=== PATIENT | female | born 1990 | race Caucasian/White ===

== ENCOUNTER 2018-02-22 09:59 | Emergency (ER) | payer OTHER, SELFPAY ==
--- NOTE | 2018-02-22 11:11 | RAD ---
LEFT FOOT 3 VIEWS: Date: 02/22/18 HISTORY: Foot pain. COMPARISON: None. FINDINGS: No acute fracture or malalignment. Lisfranc interval is normal. There is an os intermetatarseum betwe en the first and second metatarsal bases. There is a bipartite hallux sesamoid versus old fracture. IMPRESSION: No acute abnormality. POS: [facility]
== END 2018-02-22 11:40 | disposition home or self-care (01) ==
LOC: ERS 09:59
DX: M67.472 Ganglion, left ankle and foot (principal); F32.9 Major depressive disorder, single episode, unspecified

== ENCOUNTER 2019-10-01 09:41 | Inpatient (IN) | payer OTHER ==
[2019-10-01] MEDS ORDERED: Bicitra 30 ML UDCUP PO SCH (10:19)
[2019-10-01] MEDS ORDERED: hydrALAZINE 20 MG/ML VIAL SLOW IVP PRN ×2 (10:19→16:57)
[2019-10-01] MEDS ORDERED: Lactated Ringer's 1,000 ML IV SCH (10:19)
[2019-10-01] MEDS ORDERED: Promethazine HCl 25 MG/ML VIAL IM PRN ×5 (10:19→16:59)
[2019-10-01] MEDS ORDERED: Ondansetron PF 4 MG/2 ML Vial IVP PRN ×3 (10:19→16:57)
[2019-10-01 10:33] VITALS: BMI 45.7
[2019-10-01 11:39] LABS: Hemoglobin 11.2 g/dL (12.0-16.0); Mean Corpuscular HGB CONC 33.1 g/dL (32.0-36.0); Mean Corpuscular Volume 84.6 fL (78.0-98.0); Mean Platelet Volume 8.2 fL (7.4-10.4); Platelet Count 193 thou/uL (130-400); RBC Distribution Width 13.7 % (11.5-14.5); White Blood Cell (WBC) Count 6.8 thou/uL (4.8-10.8)
[2019-10-01] MEDS ORDERED: CEFAZOLIN 3 GM in Sodium Chloride 0.9% 100 ML IVPB SCH (11:45)
[2019-10-01] MEDS ORDERED: MORPHINE 5 MG/10 ML PF VIAL ONE (12:07)
[2019-10-01] MEDS ORDERED: Oxytocin 10 UNITS/ML VIAL ONE ×2 (12:08→13:26)
[2019-10-01] MEDS ORDERED: Ondansetron PF 4 MG/2 ML Vial ONE (12:08)
[2019-10-01] MEDS ORDERED: ePHEDrine/0.9% NaCl/PF SYRINGE 50 mg/10 ml ONE (12:08)
[2019-10-01 12:24] LABS: HBSAg Index 0.21 S/CO (0-0.99); Hep B Surf Ag Non-Reactive S/CO (NonReactive); Syphilis Antibody Nonreactive (Nonreactive); Syphilis Antibody Index 0.07 S/CO (<1.00 Non-Reactive)
--- NOTE | 2019-10-01 14:11 | PDOC.OPDEL ---
OB Operative/Delivery Note Delivery Dr/Surgeon: Dion Assist: José Miguel Pre-Delivery Diagnosis: scheduled section Procedure/Post Delivery Dx: repeat low transverse CS Anesthesia: spinal - Additional Findings/Plan Compilations/Other Findings: [facility] Name: [address] : 05/24/1984, Age: 35, Sex: LISBETH Dawn [id number] Unit #: [id number], Status: DIS IN [phone] Location: [address] [place] [address] Dictated by: Charlotte Valdez MD *r Admission Date: 09/25/19 Report #: [id number] Discharge Date: 09/27/19 CC: ~ OPERATIVE NOTE DATE OF PROCEDURE: 10/01/2019 ATTENDING SURGEON: Dr. Parrish Ashley MD RESIDENT SURGEONS: Charlotte Valdez, PGY-2, PROCEDURES PERFORMED: 1. Repeat low-transverse section x3 PREOPERATIVE DIAGNOSES: 1. Term intrauterine at 39 weeks with hx of rLTCS x2 POSTOPERATIVE DIAGNOSES: 1. Term intrauterine at 39 weeks s/p rLTCS x3 ANESTHESIA: Spinal. INDICATIONS: The patient is a 29-year-old, G7, P3P2 at 39.2 weeks presented for scheduled repeat . PROCEDURE IN DETAIL: After risks, benefits, and alternatives were explained to the patient, she gave informed consent. Preoperative antibiotics included cefazolin 3 g IV. The patient was taken to the operating room, and spinal anesthesia was initiated. She was placed in the supine position with a leftward tilt and prepped and draped in the usual sterile fashion. A Pfannenstiel incision was made with a scalpel and carried down to the level of fascia, which was sharply nicked. The fascial cut was extended bilaterally with Wayne scissors. The inferior and superior edges of the cut fascial edges were elevated with Helen clamps, and the underlying rectus muscles were sharply and bluntly dissected free. The recti were divided sharply. Multiple adhesions between the anterior uterus and the abdominal wall were carefully taken down with Metzenbaum scissors and the bovie; The rectus muscles were then incised transversely 2cm bilaterally to create more room;A low transverse score was made with a scalpel, and the uterus was entered in the midline with the scalpel. Clear fluid was seen. Hysterotomy was extended manually. The was noted to be vertex and easily delivered by fundal pressure. Mouth and nares were bulb suctioned. Delayed cord clamp and then cut. Grossly normal male infant handed to the nursing team. Cord blood was obtained. The placenta was manually extracted, found to be intact with 3-vessel cord and discarded. Uterus was externalized, and the endometrium was curetted with a dry lap. Bladder blade was replaced, and the uterus was closed with a running locking suture followed by a running horizontal mattress imbricating layer also with 1 Monocryl.. Hemostasis was observed; Abdomen was copiously irrigated and cleared of blood and clots. Seprafilm was applied. Uterus was internalized, and the hysterotomy was again noted to be hemostatic. Arrista was applied along the peritoneal and divided adhesion edges for multiple tiny oozing sites, with hemostasis seen. The rectus muscles were repaired with 0 vicryl. The fascia was closed with a running nonlocking 0 PDS suture. The subcutaneous tissue was irrigated, and a 3-0 Vicryl was used to close the subtaneous layer. Stapled closed. All counts were correct. The patient tolerated the procedure well, was taken to the recovery room in a stable position. QBL: Pending COMPLICATIONS: None. FINDINGS: Grossly normal male with Apgars of 8 and 9 Grossly normal placenta, 3-vessel cord discarded. DRAINS: Teran to gravity, drained clear urine. Continue to routine care
[2019-10-01] MEDS ORDERED: Promethazine HCl 25 MG SUPP PR PRN (14:14)
[2019-10-01] MEDS ORDERED: Promethazine HCl 25 MG/ML VIAL SLOW IVP PRN ×2 (14:14→16:59)
[2019-10-01] MEDS ORDERED: Ondansetron HCl/PF 4 MG/2 ML Vial IVP PRN ×2 (14:14→16:59)
[2019-10-01] MEDS ORDERED: Naloxone HCl 0.4 mg/ml Vial IVP PRN ×2 (14:14)
[2019-10-01] MEDS ORDERED: Naloxone HCl 0.4 mg/ml Vial IV PRN (14:14)
[2019-10-01] MEDS ORDERED: Ketorolac Tromethamine 30 MG/ML VIAL IVP PRN (14:14)
[2019-10-01] MEDS ORDERED: diphenhydrAMINE 50 MG/ML VIAL IVP PRN (14:14)
[2019-10-01] MEDS ORDERED: Communication Order-Pharmacy FS SCH (14:15)
[2019-10-01] MEDS ORDERED: Ketorolac Tromethamine 30 MG/ML VIAL ONE (16:04)
[2019-10-01] MEDS ORDERED: NS / Oxytocin 40 units/1000ml 1,000 ML ONE (16:10)
[2019-10-01] MEDS ORDERED: NS / Oxytocin 40 units/1000ml 1,000 ML IV SCH (16:57)
[2019-10-01] MEDS ORDERED: Bisacodyl 10 MG SUPP PR PRN (16:57)
[2019-10-01] MEDS: Ferrous Sulfate 325 MG TAB PO SCH (19:29)
[2019-10-01] MEDS: Docusate Calcium (SURFAK) 240 MG CAP PO SCH (19:29)
[2019-10-02] MEDS: Ketorolac Tromethamine 30 MG/ML VIAL IVP SCH ×3 (01:05→09:26)
[2019-10-02] MEDS ORDERED: HYDROcodone/Acetaminophen 5/325 mg Tablet PO PRN (02:16)
[2019-10-02] MEDS ORDERED: Zolpidem Tartrate 5 MG TAB PO PRN (02:16)
[2019-10-02] MEDS ORDERED: Meperidine HCl/PF 25 MG/ML VIAL IM PRN (02:16)
[2019-10-02] MEDS ORDERED: Sodium Chloride 0.9% 0 ML ONE (02:36)
[2019-10-02 07:48] LABS: Hemoglobin 8.6 g/dL (12.0-16.0); Mean Corpuscular HGB CONC 34.3 g/dL (32.0-36.0); Mean Corpuscular Hemoglobin 29.9 pg (27.0-31.0); Mean Corpuscular Volume 87.2 fL (78.0-98.0); Mean Platelet Volume 8.4 fL (7.4-10.4); Platelet Count 173 thou/uL (130-400); RBC Distribution Width 13.7 % (11.5-14.5); Red Blood Cell (RBC) Count 2.87 mill/uL (4.20-5.40); White Blood Cell (WBC) Count 5.9 thou/uL (4.8-10.8)
[2019-10-02] MEDS ORDERED: Adacel (T-DAP) 0.5 ML SYRINGE IM ONE (09:00)
[2019-10-02] MEDS: HYDROcodone/Acetaminophen 5/325 mg Tablet PO PRN ×3 (09:23→20:09)
[2019-10-02] MEDS: Docusate Calcium (SURFAK) 240 MG CAP PO SCH ×2 (09:24→20:09)
[2019-10-02] MEDS: Ferrous Sulfate 325 MG TAB PO SCH ×2 (09:24→20:08)
[2019-10-02] MEDS: Prenatal Vitamin 1 TAB PO SCH (09:24)
[2019-10-02] MEDS: Ibuprofen 800 MG TAB PO SCH ×2 (13:09→21:35)
[2019-10-02] MEDS: Simethicone Chewable 80 MG TAB PO PRN ×2 (15:20→20:09)
[2019-10-03] MEDS: HYDROcodone/Acetaminophen 5/325 mg Tablet PO PRN ×5 (00:04→17:56)
[2019-10-03] MEDS: Simethicone Chewable 80 MG TAB PO PRN ×2 (05:46→21:10)
[2019-10-03] MEDS: Ibuprofen 800 MG TAB PO SCH ×3 (05:46→21:10)
[2019-10-03] MEDS: Docusate Calcium (SURFAK) 240 MG CAP PO SCH ×2 (09:53→21:10)
[2019-10-03] MEDS: Prenatal Vitamin 1 TAB PO SCH (09:53)
[2019-10-03] MEDS: Ferrous Sulfate 325 MG TAB PO SCH ×2 (09:57→21:10)
[2019-10-03] MEDS ORDERED: HYDROcodone/Acetaminophen 7.5/325 mg Tablet PO PRN (18:00)
[2019-10-03] MEDS: HYDROcodone/Acetaminophen 7.5/325 mg Tablet PO PRN (22:21)
[2019-10-04] MEDS: Ibuprofen 800 MG TAB PO SCH ×2 (04:19→13:34)
[2019-10-04] MEDS: Simethicone Chewable 80 MG TAB PO PRN ×2 (04:19→08:58)
[2019-10-04] MEDS: HYDROcodone/Acetaminophen 7.5/325 mg Tablet PO PRN ×2 (04:20→08:58)
[2019-10-04 08:41] VITALS: BP 108/58; TEMP 97.8
[2019-10-04] MEDS: Prenatal Vitamin 1 TAB PO SCH (08:58)
[2019-10-04] MEDS: Docusate Calcium (SURFAK) 240 MG CAP PO SCH (08:58)
[2019-10-04] MEDS: Ferrous Sulfate 325 MG TAB PO SCH (08:58)
--- NOTE | 2019-10-07 02:28 | PQF ---
PARRISH Morales MD [id number] CLINICAL DOCUMENTATION CLARIFICATION FORM: POST DISCHARGE Addendum to original discharge summary date: ____ Late entry note date: __ DATE: 10/07/2019 ATTN: Parrish Crook Please exercise your independent, professional judgment in responding to the clarification form. Clinical indicators are provided on the bottom of this form for your review Please check appropriate box(s): [ ] Acute blood loss anemia [ ] Post-op anemia related to acute blood loss [ ] Anemia of [ ] Other diagnosis [ ] Unable to determine In addition, please specify: Present on Admission (POA): [ ] Yes [ ] No [ ] Unable to determine For continuity of documentation, please document condition throughout progress notes and discharge summary. Thank You. CLINICAL INDICATORS - SIGNS / SYMPTOMS / LABS Vital sign 10/02 Pulse 101 Laboratory Hematology 10/01 RBC 4.00, Hgb 11.2, Hct 33.8 Laboratory Hematology 10/02 RBC 2.87, Hgb 8.6, Hct 25.0 Operative report p1 10/01 EBL : 800 ml RISK FACTORS Operative report p1 10/01 39 weeks gestation Operative report p1 10/01 s/p CS TREATMENTS: NOV 16 Ferrous Sulfate 325 mg (This form is maintained as a part of the permanent medical record) 2014 [employer] All Rights Reserved Agustina [email or web address] [not provided] MTDD
--- NOTE | 2019-10-08 08:09 | DIS ---
DATE OF ADMISSION: 10/01/2019 DATE OF DISCHARGE: 10/04/2019 PRINCIPAL DIAGNOSES: 1. Thirty-nine week . 2. Previous , delivered. 3. Morbid obesity, delivered. 4. Chronic anemia with acute blood loss anemia. PROCEDURES: Repeat low cervical transverse . BRIEF HISTORY: This is a 29-year-old female, G3, P2, at 39 weeks estimated gestational age, admitted for scheduled repeat . procedures included ultrasound x3 and nonstress testing. She also had an amniocentesis performed at 19 weeks for an elevated Down syndrome risk on noninvasive screening. HOSPITAL COURSE: Ms. Braden David was admitted to Labor and Delivery and underwent repeat on 10/01/2019. Postoperatively, she did well. She became ambulatory and tolerating a regular diet. Pain was well controlled. She had an uneventful course and had no complications from her surgery. She was discharged in good condition on 10/04/2019. DISCHARGE INSTRUCTIONS: 1. Activity: No heavy exertion x6 weeks. 2. Diet: Regular. 3. Medications: [place], ibuprofen, iron, Colace. ROUTINE INSTRUCTIONS: Follow up in 2 weeks at [facility] with Dr. Ashley. Job ID: [id number]
== END 2019-10-04 17:51 | disposition home or self-care (01) | DRG 787 ==
LOC: EEVIPCON 09:41 → L&D 09:41 → 3SW 16:51
PROVIDERS: ADMIT Family Medicine; ATTEND Family Medicine
PROC: 10D00Z1 Extraction of Products of Conception, Low, Open Approach (ICD-10-PCS; principal; 2019-10-01)
DX: O34.211 Maternal care for low transverse scar from previous cesarean delivery (principal); D62 Acute posthemorrhagic anemia; Z3A.39 39 weeks gestation of pregnancy; Z37.0 Single live birth; O76 Abnormality in fetal heart rate and rhythm complicating labor and delivery; O99.214 Obesity complicating childbirth; E66.9 Obesity, unspecified; O99.02 Anemia complicating childbirth
CPT/HCPCS: 36415; 51702; 85027; 86780; 86850; 86900; 86901; 87340; J0690; J1885; J2274; J2405; J2590; J3490

== ENCOUNTER 2020-11-11 12:15 | Emergency (ER) | payer OTHER ==
[2020-11-12 05:45] LABS: SARS-CoV-2 PCR by NAA DETECTED (NotDetected)
== END 2020-11-11 12:58 | disposition home or self-care (01) ==
LOC: ERS 12:15
DX: U07.1 COVID-19 (principal); F17.200 Nicotine dependence, unspecified, uncomplicated
CPT/HCPCS: 87635; 99283; U0003; U0005

== ENCOUNTER 2022-11-25 09:04 | Outpatient (CLI) | payer OTHER | END 2022-11-25 09:05 | disposition home or self-care (01) | LOC: BICULT 09:04 | PROVIDERS: ATTEND Family Medicine | DX: O09.892 Supervision of other high risk pregnancies, second trimester (principal) | CPT/HCPCS: 76805 ==

== ENCOUNTER 2023-06-04 01:04 | Emergency (ER) | payer OTHER ==
[2023-06-04] MEDS ORDERED: Diazepam 5 MG TAB ONE (02:56)
[2023-06-04] MEDS ORDERED: Diazepam 10 MG/2 ML SYRINGE ONE (02:56)
[2023-06-04] MEDS ORDERED: PROPOFOL 20 ML ONE (04:11)
== END 2023-06-04 05:37 ==
LOC: ERS 01:04
DX: T19.2XXA Foreign body in vulva and vagina, initial encounter (principal); F17.200 Nicotine dependence, unspecified, uncomplicated
CPT/HCPCS: 96374; 96375; 99156; 99157; J2704; J3360